=== PATIENT | female | born 1985 | race Caucasian/White ===

== ENCOUNTER 2018-05-09 10:19 | Emergency (ER) | payer MEDICAID ==
[~2018-05-09] VITALS: Ht 175.3 cm; Wt 75.9 kg
[2018-05-09 12:04] VITALS: BP 114/71
[2018-05-09] MEDS ORDERED: BUPIVACAINE HCL/PF 0.25% 10 ML VIAL INJ ONE (12:30)
== END 2018-05-09 13:14 | disposition left against medical advice (07) ==
LOC: EMS 10:21
DX: K02.9 Dental caries, unspecified (principal)